=== PATIENT | male | born 2000 | race Caucasian/White ===

== ENCOUNTER 2023-11-27 05:09 | Emergency (ER) | payer SELFPAY ==
[~2023-11-27] VITALS: Ht 172.7 cm; Wt 74.8 kg
[2023-11-27 07:07] VITALS: BP 126/81; PULSE 117; RESP 18; TEMP 98.8
== END 2023-11-27 05:45 ==
LOC: MED 05:09
DX: R21 Rash and other nonspecific skin eruption (principal); Z02.89 Encounter for other administrative examinations; V89.2XXA Person injured in unspecified motor-vehicle accident, traffic, initial encounter; Y93.89 Activity, other specified; Y92.410 Unspecified street and highway as the place of occurrence of the external cause; Y99.8 Other external cause status
CPT/HCPCS: 99283